=== PATIENT | male | born 1995 | race Two or more races ===

== ENCOUNTER 2019-11-28 08:31 | Emergency (ER) | payer MEDICAID ==
[~2019-11-28] VITALS: Ht 193 cm; Wt 73.0 kg
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
[2019-11-28 10:09] VITALS: BP 118/78
== END 2019-11-28 10:19 | disposition home or self-care (01) ==
LOC: ED 10:13
DX: S02.2XXA Fracture of nasal bones, initial encounter for closed fracture (principal); S00.83XA Contusion of other part of head, initial encounter; S09.90XA Unspecified injury of head, initial encounter; X58.XXXA Exposure to other specified factors, initial encounter; Y93.89 Activity, other specified; Y92.098 Other place in other non-institutional residence as the place of occurrence of the external cause; Y99.8 Other external cause status
CPT/HCPCS: 70486; 99284

== ENCOUNTER 2019-12-06 10:37 | Day surgery (SDC) | payer MEDICAID ==
[~2019-12-06] VITALS: Ht 193 cm; Wt 75.6 kg
[~2019-12-06 10:37] MED LIST: ACETAMINOPHEN 325 MG TABLET PO PRN; FENTANYL PF 100 MCG/2ML IV PRN; MEPERIDINE/PF 25MG/ML,1ML IVPush PRN; MORPHINE SULFATE 4 MG/ML, 1ML IVPush PRN; OXYcodone 5 MG/5 ML ORAL.SOL UDC PO PRN; PLEASE ENTER ALLERGIES MC SCH; PLEASE ENTER HEIGHT AND WEIGHT MC SCH; PROMETHAZINE 25 MG/ML, 1ML IV PRN
[2019-12-06] MEDS ORDERED: LACTATED RINGERS 1,000 ML IV SCH (11:21)
[2019-12-06] MEDS ORDERED: NAPR-685 PO (11:23)
[2019-12-06] MEDS ORDERED: OXYMETAZOLINE NASAL SPRAY 0.05%, 15ML ONE (11:38)
[2019-12-06] MEDS ORDERED: MUPIROCIN OINT 2%, 22GM ONE (11:38)
[2019-12-06] MEDS ORDERED: LIDOCAINE 1%-EPI 1:100K, 20ML ONE (11:38)
[2019-12-06] MEDS ORDERED: COCAINE TOPICAL SOLN 4%, 4ML ONE (11:38)
[2019-12-06 11:45] VITALS: BP 114/76
[2019-12-06] MEDS ORDERED: MIDAZOLAM 1 MG/ML, 2ML ONE (12:52)
[2019-12-06] MEDS ORDERED: LIDOCAINE-MPF 2% ,5ML ONE (12:52)
[2019-12-06] MEDS ORDERED: FENTANYL PF 100 MCG/2ML ONE (12:52)
[2019-12-06] MEDS ORDERED: PROPOFOL 10 MG/ML, 20ML ONE (12:52)
[2019-12-06] MEDS ORDERED: ONDANSETRON 2MG/ML, 2ML ONE (13:43)
[2019-12-06] MEDS ORDERED: DEXAMETHASONE 4 MG/ML, 1ML ONE (13:43)
[2019-12-06] MEDS ORDERED: SUCCINYLCHOLINE 20 MG/ML, 10ML ONE (13:43)
[2019-12-06] MEDS ORDERED: FENTANYL PF 100 MCG/2ML IV PRN (14:00)
[2019-12-06] MEDS ORDERED: HYDROmorphone 2 MG/ML, 1ML IVPush PRN (14:00)
[2019-12-06] MEDS ORDERED: PROMETHAZINE 25 MG/ML, 1ML IV PRN (14:00)
[2019-12-06] MEDS ORDERED: OXYcodone 5 MG/5 ML ORAL.SOL UDC PO PRN (14:00)
[2019-12-06] MEDS ORDERED: MEPERIDINE/PF 25MG/ML,1ML IVPush PRN (14:00)
[2019-12-06] MEDS ORDERED: ACETAMINOPHEN 325 MG TABLET PO PRN (14:00)
[2019-12-06] MEDS ORDERED: OXYcodone 5 MG/5 ML ORAL.SOL UDC ONE (14:31)
[2019-12-06] MEDS ORDERED: OXYcodone IR 5MG TABLET ONE (16:37)
== END 2019-12-06 17:00 | disposition home or self-care (01) ==
LOC: OUT 10:37
PROVIDERS: ATTEND Otolaryngology Facial Plastic Surgery
DX: S02.2XXA Fracture of nasal bones, initial encounter for closed fracture (principal); X58.XXXA Exposure to other specified factors, initial encounter; Y93.89 Activity, other specified; Y92.89 Other specified places as the place of occurrence of the external cause; Y99.8 Other external cause status
CPT/HCPCS: 21320; J0330; J1100; J2250; J2405; J2704; J3010; J3490; J7120